=== PATIENT | female | born 1990 | race American Indian/Alaskan Native ===

== ENCOUNTER → 2023-06-04 14:25 | Outpatient (CLI) | payer SELFPAY ==
--- NOTE | 2023-06-04 13:15 | DI.RAD_ITS ---
Exam(s) XR FOOT LT COMPLETE EXAM: XR FOOT LT COMPLETE CLINICAL HISTORY: evaluate pathology, lt foot pain, M79.672. TECHNIQUE: 2D digital imaging was performed of the left foot. Three images were obtained. AP, obli que and lateral views were obtained. COMPARISON: No exams were available for comparison FINDINGS: BONES: No acute fracture is present. No bony destructive lesion is seen. JOINTS: No dislocation present. SOFT TISSUE: Normal. IMPRESSION: Unremarkable radiographs of the left foot. DATA REPOSITORY: RADIATION DOSE DELIVERED:
== END ==
PROVIDERS: Visit Provider Nurse Practitioner Family
DX: M79.672 Pain in left foot (principal)
CPT/HCPCS: 73630

== ENCOUNTER 2024-03-08 10:13 | Day surgery (SDC) | payer SELFPAY ==
--- NOTE | 2024-03-07 19:45 | PDOC.DSDIS_ITS ---
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 Continued alprazolam [Xanax] 0.5 mg tablet 0.5 mg PO DAILY Qty: 3 0RF Rx Instructions: Take 1 tablet by mouth the morning of the operation if needed for anxiety. 1 tablet can be taken by mouth in the 2 days leading up to surgery if needed for anxiety omeprazole 20 mg capsule,delayed release(DR/EC) 20 mg PO DAILY simplex PO BID acetaminophen 325 mg tablet 325 mg PO ONCE PRN Discharge Instructions Additional Instructions: Kristofer, we were able to complete your preserved today just as we discussed before surgery. Although it was long, the connection of the tract (or fistula) was relatively superficial, and I was able to remove all of this today, and close the healthy tissue around it. I used quite a bit of numbing medicine, so hopefully that will provide some relief in the days to come. There is a layer of stitches on your skin, and a layer stitches deep to that. All of these are absorbable stitches, and none will have to be removed. Expect to have a fair amount of discomfort in the area. Soaking your backside in warm water with Epsom salts or baking soda for 15 minutes 3 times a day often times provides some relief. This can also be done after bowel movements. I would encourage you to use an [id number] stool softener in the days to come to help promote soft and easy bowel movements. Moisten towelettes, or wipes may also be helpful. You may also have a little bit of bleeding from the incision, so using a menstrual pad for the first week is often times a smart idea. Hopefully, this will provide a cure for your fistula and you will not have to worry about in the future. I look forward to seeing you in the office, and if you need anything in the meantime, please do not hesitate to call and let me know. I also provided a prescription for some stronger pain medications if you need for the next week. 1. Resume all of your regular medications. 2. Alternate over the counter tylenol and ibuprofen every 6 hours for the first 2 days, then use as needed. Use the prescription for [] if needed for more severe pain. 3. Soak for 10-15 minutes in warm water, warm water mixed with half a cup of baking soda, or Epson salts after each bowel movement, or up to 5 times per day as needed for pain. 4. No heavy lifting until I see you in the office. 5.Call the office (or go directly to the emergency room after hours) if you notice any of the following: ? Develop chills (warm to touch), or if you have a thermometer ? and your temperature is above 101 ? Difficulty breathing or difficultly swallowing ? Persistent vomiting ? Any bleeding ? exceeding one tablespoon 6. Call your physician if the site where your intravenous was started becomes red, swollen, painful, and warm to touch. Activity:: Activity as Tolerated Diet:: As Tolerated Discharge Orders Discharge Orders: Discharge Order (Routine); Ordered 03/07/24 Ordered By: Brijesh Baez DS: Diagnosis Discharge Diagnosis (1) Anorectal fistula: Status: Acute Asessment and Plan: Status post fistulectomy with primary closure. Follow-up in office for outpatient care
--- NOTE | 2024-03-07 19:46 | W.PM.OP ---
Date of service: 03/08/24 Time of Service: 13:54 Operative Note Operative Note DATE OF PROCEDURE: 03/08/24 PRE-OP DIAGNOSIS: Anal fistula POST-OP DIAGNOSIS: same PROCEDURE: Anorectal exam under anesthesia with fistulectomy and primary closure SURGEON: Brijesh Baez ANESTHESIA TYPE: Local By Surgeon and General:No Airway Refer to Anesthesia Record ESTIMATED BLOOD LOSS: 10 PATHOLOGY: other (And rectal fistula) COMPLICATIONS: None Patient was transported to: PACU Patient's condition: stable Indications: Kristofer is a 33-year-old woman with a symptomatic perianal fistula Findings: Anal fistula superficial to the sphincter complex Procedure Description: Kristofer was brought back to the operating room, and assisted onto the OR table. Anesthesia was induced, she was placed in the lithotomy position taking great care to pad and support her appropriately. Next, the perineum was prepped and draped. The external opening of the fistula is to the left of the anus, approximately 7 cm away from the anal verge. There are some granulation tissue here. Remainder the external exam was normal. I performed a digital rectal exam which felt normal. Next, I established a generous field block of the entire perineum, with a particular focus along the trajectory of the fistula. Next, with the assistance of a anoscopy, I cannulated the external portion of the fistula and irrigated it with hydrogen peroxide. Bubbles were seen emanating from approximately 12 o'clock position immediately at the anal verge. Next, I cannulated the fistula tract using a lacrimal duct probe. This was secured in place with a Allis clamp. The external portion of the fascia was then circumferentially incised, and the skin overlying the tract was opened. Next, with electrocautery, the fistula tract was dissected away from the surrounding tissues. Great care was taken to ensure that all the fistula was encompassed. The dissection was continued towards the anal verge, and the external sphincter complex was gently dissected away. The fistula tract was superficial to this. The fistula was completely excised around the lacrimal duct probe. It was passed off the field labeled as a specimen. Surgical site was irrigated. It was hemostatic. Deep layers were closed with interrupted 2-0 Vicryl's, and the skin was approximated with interrupted 3-0 Vicryl stitches. The patient was moved back into the supine position, with a menstrual pad and mesh underpants as a dressing.
[2024-03-08] VITALS (20 sets, daily range): BP systolic 74–145; BP diastolic 39–88; PULSE 41–95; RESP 13–21; TEMP 36.2–37.1; O2SAT 95–100; BMI 40.5
[2024-03-08] MEDS: Celecoxib 200 MG CAP PO (10:52)
[2024-03-08] MEDS: Gabapentin 300 MG CAP 600 MG PO (10:52)
[2024-03-08] MEDS: Acetaminophen 500 MG TAB 1000 MG PO (10:53)
[2024-03-08] MEDS: Na Phosphate Enema-Adult 133 ML BTL PR (10:57)
[2024-03-08] MEDS: Lactated Ringers 1,000 ML 80 ML IV (11:23)
--- NOTE | 2024-03-08 12:21 | W.ANESPRE ---
General Info Date of Service Date Performed: 03/08/24 Height: 4 ft 11 in Weight: 91 kg Body Mass Index (BMI): 40.5 Surgical Procedure: Operation Date: 03/08/24 13:25 Proposed Procedure Side Surgeon p Anorectal EUA with possible fistulectomy Brijesh Baez MD Meds Allergies and Home Medications Allergies Allergy/AdvReac Type Severity Reaction Status Date / Time Penicillins Allergy Intermediate Hives Verified 03/08/24 10:45 Home Medication ?Medication ?Instructions ?Recorded omeprazole 20 mg capsule,delayed 20 mg PO DAILY 08/11/23 release simplex PO BID 08/11/23 acetaminophen 325 mg tablet 325 mg PO ONCE PRN 09/16/23 alprazolam 0.5 mg tablet (Xanax) 0.5 mg PO DAILY #3 tabs 02/29/24 Current Visit Medications: Current Medications Generic Name Dose Route Start Last Admin Trade Name Freq PRN Reason Stop Dose Admin Acetaminophen 1,000 mg 03/08/24 06:00 03/08/24 10:53 Acetaminophen 500 Mg Tab PO 03/08/24 23:59 1,000 mg PREOP ORAL Administration Celecoxib 200 mg 03/08/24 06:00 03/08/24 10:52 Celecoxib 200 Mg Cap PO 03/08/24 23:59 200 mg PREOP ORAL Administration Gabapentin 600 mg 03/08/24 06:00 03/08/24 10:52 Gabapentin 300 Mg Cap PO 03/08/24 23:59 600 mg PREOP ORAL Administration Hydromorphone HCl 0.2 mg 03/07/24 19:47 Hydromorphone 2 Mg/Ml Syr IVP 04/06/24 19:46 Q1H PRN PRN Ringer's Solution 1,000 mls @ 80 mls/hr 03/08/24 06:00 03/08/24 11:23 IV 03/08/24 23:59 80 mls/hr INFUSION ORAL Administration IV Miscellaneous Supplies 1 each 03/08/24 06:00 Iv Access IV 03/08/24 23:59 DIRECTED ORAL Sodium Biphosphate/Sodium Phosphate 133 ml 03/08/24 06:00 03/08/24 10:57 Na Phosphate Enema-Adult 133 Ml Btl MD 03/08/24 23:59 2 btl PREOP ORAL Administration Sodium Chloride 0 ml 03/08/24 06:00 Normal Saline Flush 10 Ml Syr IV 03/08/24 23:59 PRN PRN Sodium Chloride 0 ml 03/08/24 06:00 Normal Saline 10 Ml Vial IJ 03/08/24 23:59 DIRECTED PRN Sterile Water 0 ml 03/08/24 06:00 Water,Injection,Sterile 10 Ml Vial IJ 03/08/24 23:59 DIRECTED PRN Tramadol HCl 50 mg 03/07/24 19:47 Tramadol 50 Mg Tab PO 04/06/24 19:46 Q6H PRN PRN Pain PFSH Active Problems Active Problems: Problem Status Onset Code Anorectal fistula Acute K60.5 Medical History Medical History Anxiety Tobacco Smoking/Tobacco Use Status: Never Alcohol Alcohol Intake: current Alcohol intake frequency: a few times a month Alcohol type: beer Substance Use Substance use: Never Substance use type: does not use Vital Signs and Lab Results Vital Signs Most Recent Vital Signs in EMR: Most Recent Vital Signs Temp Pulse Resp BP Pulse Ox 36.8 C 85 20 145/88 H 99 03/08/24 10:46 03/08/24 10:46 03/08/24 10:46 03/08/24 10:46 03/08/24 10:46 Lab Results Blood Type / Crossmatch: No Data to Display Complete Blood Count: No Data to Display Complete Metabolic Panel: No Data to Display Liver Function Panel: No Data to Display Coagulation Panel: No Data to Display Cardiac Panel: No Data to Display Arterial Blood Gas: No Data to Display Venous Blood Gas: No Data to Display Pancreas Panel: No Data to Display Thyroid Panel: No Data to Display Infectious Disease: No Data to Display Blood Cultures: No Data to Display Toxicology Panel: No Data to Display Panel: No Data to Display Anesthesia Assessment and Plan Anesthesia History Personal History: No History of General Anesthesia Family History: Family History Unknown Exercise Tolerance Exercise Tolerance: Metabolic Equivalents>4 Pertinent Negatives Pertinent Negatives: No Symptoms of GERD, No Major Cardiovascular Symptoms or Complaints, No Major Pulmonary Symptoms or Complaints and No History of CVA/TIA Cardiac & Pulmonary Exam Cardiac Exam: Normal S1/S2 Heart Sounds Pulmonary Exam: Clear Bilateral Breath Sounds Implantable Cardiac Device Does patient have a Pacemaker or an ICD?: No Airway Exam Known Difficult Airway: No Mallampati Class: 3 Mouth Opening: Normal (> 3cm) Thyromental Distance: Greater than 3 cm Neck Range of Motion: Full ROM Neck Circumference: Normal Teeth Condition: Normal Dentition ASA Classification ASA Score: ASA 2 Emergency Case?: No NPO Status NPO Status: NPO Clears >2 hours, Solids >8 hours Status Status: Negative HCG Anesthesia Plan Resuscitation Status: Full Code Anesthesia Technique: General Anesthesia Airway Planned: Natural Airway Monitors Used: Standard Monitors Preoperative Comments:: Very anxious, versed preop
--- NOTE | 2024-03-08 13:25 | BOWEL_PTH ---
PATIENT: Kristofer Sol LOC: [facility] U#:[id number] AGE/SX: 33/F ROOM: RE03/08/[address]: Brijesh Baez MD : 1990 BED: DIS: 03/08/2024 SPEC #: [id number] RECD: 03/08/24 18:07 STATUS: SHIRLENE REQ #: [id number] YEVGENIY: 03/08/24 13:[address]: Brijesh Baez DEPT: Surgical Specimen RECD BY: Iqra Ellis ENTERED: 03/08/24 18:08 SP TYPE: Bowel OTHR DR: None Tissues: 1 - BIOPSY BOWEL Procedures: GROSS AND MICRO LEVEL 3 Comments: [id number]
[2024-03-08] MEDS: Normal Saline 20 ML VIAL (13:32)
[2024-03-08] MEDS: Hydrogen Peroxide 3% 480 ML BTL (13:33)
[2024-03-08] MEDS: Bupivacaine LIPOSOME/PF 133 MG/10 ML VIAL IJ (13:33)
--- NOTE | 2024-03-08 14:38 | W.ANESPOSTOP ---
Postoperative Evaluation Date, Time and Location Date Performed: 03/08/24 Time Performed: 14:12 Patient Location: PACU Vital Signs Most Recent Imported Vital Signs: Most Recent Vital Signs Temp Pulse Resp BP Pulse Ox 36.2 C L 62 16 111/62 97 03/08/24 14:22 03/08/24 14:22 03/08/24 14:22 03/08/24 14:22 03/08/24 14:22 Pain Score Most Recent Pain Score: Most Recent Pain Score Pain Level 0 03/08/24 14:07 Assessment Mental Status: Awake (Alert & Oriented to Patient Baseline) Airway and Respiratory Function: Patent airway with normal (patient baseline) respiratory exam Cardiovascular Function: Hemodynamically Stable Hydration Status: Adequately Hydrated Nausea & Vomiting: No Nausea or Vomiting Pain: Pt. Denies Any Pain Peripheral Nerve Block: Patient did not receive a nerve block
== END 2024-03-08 15:16 | disposition home or self-care (01) ==
LOC: SUR 10:14
PROVIDERS: Visit Provider Surgery
PROC: (CPT 46270; principal; 2024-03-08 13:15)
DX: K60.5 Anorectal fistula (principal); F41.9 Anxiety disorder, unspecified
CPT/HCPCS: 46270; 88305; 88304; C9290; J2001; J2250; J2371; J2405; J2704